=== PATIENT | male | born 2000 ===

== ENCOUNTER 2025-02-19 15:03 | Emergency (ER) | payer OTHER, SELFPAY ==
[2025-02-19 15:05] VITALS: BP 150/96; PULSE 97; RESP 18; TEMP 36.5; O2SAT 97; BMI 35.4
--- NOTE | 2025-02-19 15:08 | ED_ITS ---
HPI - Eye Problem General Chief complaint: Eye Problems Stated complaint: eye issues Time Seen by Provider: 02/19/25 20:16 Source: patient Limitations: no limitations History of Present Illness ED Provider: Oly Sampson PA-C HPI Narrative: 25-year-old male who is otherwise healthy presents with right eye pain. 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 It has been present since yesterday. Associated redness of the sclera. Patient is not diabetic and does not use contact lenses Related Data Previous Rx's ?Medication ?Instructions ?Recorded erythromycin 5 mg/gram (0.5 %) eye 0.5 inch ophthalmic -Right QID #3.5 02/19/25 ointment grams oxycodone 5 mg tablet 5 mg PO Q4H PRN pain #3 tabs 02/19/25 Allergies Allergy/AdvReac Type Severity Reaction Status Date / Time No Known Allergies Allergy Verified 02/19/25 15:07 Review of Systems Review of Systems: Yes all other systems are reviewed and are negative Constitutional: Constitutional: Denies fatigue and Denies fever(s) Eyes: Eyes: Reports irritation and Reports eye pain Endocrine: Endocrine: Denies fatigue PMF Past Medical History Attestation statement: The following information was validated with the patient. Social History Social History Advance Directives: No Advance Directives Information Provided: Yes Physical Exam Vital Signs: Vital Signs: Last Vital Signs Temp 97.6 F 02/19/25 18:49 Pulse 102 H 02/19/25 18:49 Resp 18 02/19/25 18:49 BP 138/84 02/19/25 18:49 Pulse Ox 100 02/19/25 18:49 O2 Del Method Room Air 02/19/25 15:05 BMI result Body Mass Index 35.4 Const: Other: Alert, anxious Orientation/consciousness: patient oriented x3 Eyes: Other: Large abrasion noted right lower quadrant of cornea, retained foreign body at 9:00 a.m. no Marcelle sign visual acuity 0 OD, 2019 OS Resp: Effort & Inspection: normal respiratory effort Cardio: Other: Normal peripheral perfusion Skin: Other: Warm dry no rash Neuro: General: patient oriented x3, gait normal, no focal motor deficits and CN's II-XI intact bilaterally Psych: Other: Cooperative, anxious Course Course Course Narrative: This is a Rapid Medical Examination (RME) performed by Edwin Mckeon PA-C in triage. Full HPI, ROS, assessment and treatment plan per primary provider in the Main ED. Hx: 25 yo M here w/ concerns of right eye FB. 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 Reports irritation to the eye since with foreign body sensation. Vision slightly blurry. No contacts/corrective lenses. PE/vitals: Conjunctival injection noted to right eye with tearing, no crusting, no obvious foreign body or abrasion Plan: Tetracaine/fluorescein, visual acuity Medications Administered Discontinued Medications Generic Name Dose Route Start Last Admin Trade Name Freq PRN Reason Stop Dose Admin Fluorescein Sodium 1 strip 02/19/25 15:08 02/19/25 20:23 Fluorescein Sodium Strip EYE-RIGHT 02/19/25 15:09 1 strip ONCE ONE Administration Tetracaine HCl 1 drop 02/19/25 15:08 02/19/25 20:23 Tetracaine Hcl/Pf 0.5% Oph Margi 4 Ml Drops EYE-RIGHT 02/19/25 15:09 1 drop ONCE ONE Administration Medical Decision Making Medical Decision Making [facility] Narrative: 25-year-old male who is otherwise healthy presents with right eye pain. 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 It has been present since yesterday. Associated redness of the sclera. Patient is not diabetic and does not use contact lenses No chronic issues History: Per patient I have considered the following differential diagnoses: Corneal abrasion, corneal ulceration, corneal foreign body, Marcelle sign , flushes Plan: Patient has a retained foreign body with a subsequent large corneal abrasion versus ulcer, I did attempt to remove the foreign body with a Q-tip, I could not dislodge it, the abrasion also obscures the foreign body as well. T here were 2 particles initially, 1 of them was dislodged. We will send with a contact for Ophthalmology, in the meantime sending with the pain medication and putting him on erythromycin Differential Diagnosis Differential Diagnoses: The differential diagnosis associated with the presentation includes See medical decision-making Admission/Observation Consideration of admission/observation: Escalation of care including admission/observation considered Not applicable Consult Healthcare Provider Management of the patient was discussed with: Button Bradder Referral sent to Dr. Lo Discharge Plan Discharge Clinical Impression: Corneal abrasion, Corneal foreign body Patient Disposition: Home, Self-Care Instructions: Corneal Abrasion (ED), Eye Foreign Body (ED) Additional Instructions: You have a retained foreign body in the right cornea, you also have developed a corneal abrasion. Call the printed circuit boards beveler when they open in the morning, overnight use the erythromycin as directed. Use the oxycodone as needed for pain. I am providing you with a contact of our printed circuit boards beveler, Dr. Gibbs Prescriptions: New erythromycin 5 mg/gram (0.5 %) ointment 0.5 inch ophthalmic-Right QID Qty: 3.5 0RF oxycodone 5 mg tablet 5 mg PO Q4H PRN (Reason: pain) Qty: 3 0RF Rx Instructions: Partial Fill upon patient request. Referrals: Keven Gibbs [Physician, Ophthalmology] Referral Note: right corneal FB/metal has had since yesterday, with superimposed large ulcer vs abrasion, which covers FB, I couldn't remove particle, I did attempt Stand Alone Forms: Work/School Release Print Language: Anguillan
[2025-02-19 18:49] VITALS: BP 138/84; PULSE 102; RESP 18; TEMP 36.4; O2SAT 100
[2025-02-19] MEDS: Tetracaine HCl/PF 0.5% Oph Sol 4 ML DROPS 1 DROP EYE-RIGHT (20:23)
[2025-02-19] MEDS: Fluorescein Sodium STRIP 1 STRIP EYE-RIGHT (20:23)
[2025-02-19] MEDS: Erythromycin Base 0.5% Oph Oin 1 GM TUBE 1 CM EYE-RIGHT (21:06)
[2025-02-19] MEDS: oxyCODONE HCl Immed Release 5 MG TABLET PO (21:06)
[2025-02-19 21:09] VITALS: BP 126/90; PULSE 82; RESP 18; TEMP 36.9; O2SAT 96
[2025-02-19 21:14] VITALS: BP 126/90; PULSE 82; RESP 18; TEMP 36.9; O2SAT 96
--- OUTSIDE RECORDS SUMMARY | 2025-02-19 22:20 | XMS_ITS | Encounter Summary ---
Author Organization [facility] Address [address] [place] [id number] Phone Care Team Providers Care Rn Documentation Name Role Phone Remigio Horn MD Primary Care Provider Encounter Details Date Type Department Care Team (Late st Contact Info) Description 03/17/2011 Conversion Encounter [facility] [address] [place] [address] Social History Tobacco Use Types Packs/Day Years Used Date Smoking Tobacco: Never Assessed Sex and Gender Information Value Date Recorded Sex Assigned at Male 01/23/2019 2:17 PM EDT Legal Sex Male 6:32 PM EDT Gender Identity Male 01/23/2019 2:17 PM EDT Sexual Orientation Straight 01/23/2019 2: 17 PM EDT documented as of this encounter Plan of Treatment Not on file documented as of this encounter Visit Diagnoses Not on filedocumented in this encounter Care Teams Rn Documentation Relationship Specialty Start Date End Date Remigio Horn MD [address] [place] [id number] PCP - General Pediatrics 11/03/21 documented as of this encounter
--- OUTSIDE RECORDS SUMMARY | 2025-02-19 22:20 | XMS_ITS | Clinical Summary ---
Author Organization [facility] Address [address] [place] [address] Phone Care Team Providers Care Reconnaissance Man Name Role Phone Remigio Horn MD Primary Care Provider Allergies No known active allergies Medications No known medications Active Problems Problem Noted Date Diagnosed Date Overweight 12/22/2014 Overview (10/16/2017): Overweight (278.02) Onset: 12/22/2014 Added by: Remigio Horn Assessment & Plan (01/27/2020 3:38 PM EDT): BMI over 25 and more so over 30 places patient at increased risk for development of diabetes, cardiovascular disease and kidney disease. Discussed these things in this visit. Discussed importance of being active. Discussed trying to get in regular fruits and vegetables. Assessment & Plan (01/23/2019 2:20 PM EDT): Weight has been coming down with regular exercise and some changes to diet. BMI over 25 and more so over 30 places patient at increased risk for development of diabetes, cardiovascular disease and kidney disease. Discussed these things in this visit. Assessment & Plan (01/23/2018 11:58 PM EDT): He has been coming down in weight with staying active (going to the gym and hiking). Discussed other strategies to help with weight management. Resolved Problems Problem Noted Date Diagnosed Date Resolved Date Tinea of groin 01/23/2019 01/27/2020 Assessment & Plan (01/23/2019 2:19 PM EDT): Treatment with antifungal for yeast overgrowth in groin area. Immunizations Immunization Administration Dates Next Due DTaP 5 04/15/2003, 1,1999,10/17,1999 H1N1 Inj Preservative Free 04/09/2009 HPV Vaccine 9 Valent 01/20/2017,01/20/2016,12/22 Hep A, ped/adol 01/20/2016,12/22/2014 Hep B, ped/adol 1999,1999,1999 Hib (PRP-T) 1999,1999,1999 IPV 04/15/2003,1999,1999 Influenza, injectable, quadr ivalent, preservative free 01/27/2020,01/23/2019,01/22/2018,01/20,01/20/2016,12/22/2014 Influenza, injectable, trivalent 03/17/2011,11/30 Influenza, intranasal, quadrivalent 04/10/2014 Influenza, intranasal, trivalent 03/09/2013 MMR 04/15/2003,12/17/2000 Meningococcal Conj (Menactra) MCV4P 01/20/2016,1 06/15/2009 Pneumococcal Conjugate 07/17/2000,1999 Tdap 01/27/2020,04/14/2010 Varicella 02/07/2007,03/31/2000 Family History Medical History Relation Name Comments No Known Problems Brother Gordon No Known Problems Father shi No Known Problems Mother manoj Relation Name Status Comments Brother Gordon Alive Father shi Alive Mother manoj Alive Social History Tobacco Use Types Packs/Day Years Used Date Smoking Tobacco: Some Days Smokeless Tobacco: Current Comments:Social nicotine vap ing. Alcohol Use Standard Drinks/Week Comments Yes 0 (1 standard drink = 0.6 oz pur e alcohol) 1-3 drinks every 6 months Hunger/Food Answer Date Recorded In the last 12 months, did y ou or your family ever eat less than you felt you should because there wasn't enough money for food? No 01/23/2019 Stable Housing Answer Date Recorded Are you worried that in the next 2 months you may not have stable housing? No 01/23/2019 Transportation Concerns Answer Date Rec orded In the last 12 months, have you or your family ever had to go without healthcare because you didn't have a way to get there? No 01/23/2019 Hazards in Home Answer Date Recorded Think about the place you li ve. Do you have problems with any of the following? Pests (mice or roaches), mold, no/not working smoke detectors, water leaks, no window guards. No 2018 Financing Utilities Answer Date Recorde d In the last 12 months, has t he electric, gas, oil, or water company threatened to shut off your services in your home? No 01/23/2019 Safety at Home Answer Date Recorded Are you or your family worried about feeling saf e in your home? No 01/23/2019 Outside Support Answer Date Recorded Do you feel that you need mo re support from other people or programs to help you care for yourself or your family? No 01/23/2019 Understanding Health Concerns Answer Da te Recorded Do you need help understandi ng your or your child's healthcare needs (diagnosis, medications, plan, etc.)? No 01/23/2019 Financing Health Concerns Answer Date R ecorded In the last 12 months, was t here a time when your child needed to see a doctor or get medications or supplies but could not because of cost? No 01/23/2019 Missing School or Work Answer Date Phillip rded Did you or your child miss s chool or work because of a health problem that could have been avoided? No 01/23/2019 Sex and Gender Information Value Date Recorded Sex Assigned at Male 01/23/2019 2:17 PM EDT Legal Sex Male 6:32 PM EDT Gender Identity Male 01/23/2019 2:17 PM EDT Sexual Orientation Straight 01/23/2019 2: 17 PM EDT Last Filed Vital Signs Vital Sign Reading Time Taken Comments Blood Pressure 124/80 01/27/2020 2:30 PM EDT Pulse 96 01/27/2020 2:30 PM EDT Temperature 37.1 C (98.8 F) 01/27/2020 2:30 PM EDT Respiratory Rate - - Oxygen Saturation - - Inhaled Oxygen Concentration - - Weight 84.4 kg (186 lb) 01/27/2020 2:30 PM EDT Height 163.2 cm (5' 4.25 ) 01/27/2020 2:30 PM ED T Body Mass Index 31.68 01/27/2020 2:30 PM EDT Plan of Treatment Health Maintenance Due Date Last Done Comments Influenza Vaccines (#1) 2024 02/12/20 22, 01/27/2020, 01/23/2019, Additional history exists COVID-19 Vaccine ( season) 2024 02/11/2022, 08/07/2020 DTaP,Tdap,and Td Vaccines (8 - Td or Tdap) 01/26/2030 01/27/2020, 04/14/2010, 04/15/2003, Additional history exists HIB Vaccines Aged Out 1999, 09/29, 1999 No longer eligible based on patient's age to complete this topic Hepatitis B Vaccines Completed 1999, 1999, 1999 Pneumococcal Vaccine Aged Out 07/17/2000, 12/28/19 00 No longer eligible based on patient's age to complete this topic IPV Vaccines Completed 04/15/2003, 09/29, 1999 MMR Vaccines Completed 04/15/2003, 12/17/2000 Varicella Vaccines Completed 02/07/2007, 03/31/2000 Hepatitis A Vaccines Completed 01/20/2016, 12/23/19 15 Meningococcal Vaccine Completed 01/20/2016, 010 HPV Vaccines Completed 01/20/2017, 12/31, 12/22/2014 Men B Vaccine Aged Out No longer elig ible based on patient's age to complete this topic Insurance BSMS PPO Care Teams Reconnaissance Man Relationship Specialty Start Date End Date Remigio Horn MD [address] [place] [id number] PCP - General Pediatrics 11/03/21
== END 2025-02-19 21:15 | disposition home or self-care (01) ==
PROVIDERS: Emergency Provider Emergency Medicine
DX: S05.01XA Injury of conjunctiva and corneal abrasion without foreign body, right eye, initial encounter (principal); W20.8XXA Other cause of strike by thrown, projected or falling object, initial encounter; Y93.9 Activity, unspecified; Y92.9 Unspecified place or not applicable
CPT/HCPCS: 99283; 99284